=== PATIENT | female | born 1980 | race Caucasian/White ===

== ENCOUNTER 2020-01-25 00:22 | Outpatient (CLI) | payer OTHER, SELFPAY ==
[2020-01-25 18:58] LABS: SARS-CoV-2 RNA PCR Negative
== END 2020-01-25 00:23 | disposition home or self-care (01) ==
LOC: ANHCOVIDDT 00:22
PROVIDERS: PCP Nurse Practitioner Family; Visit Provider Internal Medicine Gastroenterology
DX: Z01.812 Encounter for preprocedural laboratory examination (principal); Z20.828 Contact with and (suspected) exposure to other viral communicable diseases
CPT/HCPCS: 87635; C9803; U0003

== ENCOUNTER 2020-01-27 01:46 | Day surgery (SDC) | payer OTHER, SELFPAY ==
[2020-01-19 13:10] VITALS: BMI 43.5
[2020-01-27 06:54] VITALS: BP 154/108; PULSE 121; RESP 20; TEMP 36.3; O2SAT 98; BMI 43.1
--- NOTE | 2020-01-27 07:04 | P.HP_ITS ---
History of Present Illness History of Present Illness Consent: Risks, benefits, and alternatives have been discussed and questions answered. Patient agrees to proceed with procedure. Chief complaint: blood in stool Narrative: Rupali aMhan is a 39 year old W female referred for colonoscopy for evaluation of rectal bleeding. Patient states approximately a month ago she began having hematochezia bright red blood on the toilet paper and toilet bowl. However the past 2 weeks she has been having loose stools mixed with blood and a few clots. No significant abdominal pain. No fever chills or sweats. No recent travel. No antibiotics. No prior history of bleeding. No family history of inflammatory bowel disease. She thinks her grandmother may have had colon polyps removed. Source can tell patient has not had any blood work nor any stool cultures. [facility] Surgical History Surgical History (Updated 01/27/20 @ 07:07 by Wilder Gil MD) History of carpal tunnel surgery of right wrist Status post Status post tonsillectomy and adenoidectomy Social History Social History Gender identity (if verbalized by the patient): Female Meds Home Medications and Allergies Home Medications Medication Instructions Recorded Confirmed Type ergocalciferol (vitamin D2) 50,000 unit PO WEEKLY 01/19/20 01/19/20 History [Vitamin D2] ibuprofen 200 mg PO Q6H PRN 01/19/20 01/19/20 History Allergies Allergy/AdvReac Type Severity Reaction Status Date / Time minocycline Allergy Intermediate HIVES Verified 01/27/20 06:54 Penicillins Allergy Intermediate HIVES Verified 01/27/20 06:54 Sulfa (Sulfonamide Allergy Intermediate HIVES Verified 01/27/20 06:54 Antibiotics) nystatin Allergy Mild LOCAL RASH Verified 01/27/20 06:54 ketorolac Allergy Unknown unknown Verified 01/27/20 06:54 Vital Signs Vital Signs - 24 hr 01/27/20 06:54 Temperature 36.3 C L Pulse Rate 121 H Respiratory Rate 20 Blood Pressure 154/108 H Pulse Oximetry 98 Exam Const: Orientation/consciousness: patient oriented x3 Resp: Auscultation: clear to auscultation bilaterally Cardio: Rate: regular rate Rhythm: regular rhythm Heart sounds: no murmurs GI: GI Palp: Yes Soft to palpation, No Tenderness to palpation present (GI), Yes No hepatosplenomegaly present and No Palpable mass present Auscultation: normal bowel sounds Neuro: General: patient oriented x3 and no focal motor deficits Extrem: General: no pedal edema Assessment and Plan Additional Plan colonoscopy for evaluation of rectal bleeding
[2020-01-27] MEDS: LACTATED RINGERS 1,000 ML 150 ML IV CONT (07:09)
--- NOTE | 2020-01-27 07:27 | WPDANESEPPF ---
Anes - Initial Pre Proc Eval Procedure: Operation Date: 01/27/20 08:00 Proposed Procedures p Colonoscopy - Wilder Gil MD Date/Time: 01/27/20 07:27 Surgeon: Wilder Gil MD Pre Op Diagnosis: blood in stool Patient Data Age: 39 Gender: F Height: 5 ft 8 in Weight: 128.7 kg Last Vital Signs Temp 97.3 F L 01/27/20 06:54 Pulse 121 H 01/27/20 06:54 Resp 20 01/27/20 06:54 BP 154/108 H 01/27/20 06:54 Pulse Ox 98 01/27/20 06:54 Allergies Allergy/AdvReac Type Severity Reaction Status Date / Time minocycline Allergy Intermediate HIVES Verified 01/27/20 06:54 Penicillins Allergy Intermediate HIVES Verified 01/27/20 06:54 Sulfa (Sulfonamide Allergy Intermediate HIVES Verified 01/27/20 06:54 Antibiotics) nystatin Allergy Mild LOCAL RASH Verified 01/27/20 06:54 ketorolac Allergy Unknown unknown Verified 01/27/20 06:54 Home Medications Medication Instructions Recorded Confirmed Type ergocalciferol (vitamin D2) 50,000 unit PO WEEKLY 01/19/20 01/19/20 History [Vitamin D2] ibuprofen 200 mg PO Q6H PRN 01/19/20 01/19/20 History Patient hx anesthesia problems: none Family hx anesthesia problems: none PMFSH Past Medical History Medical History (Updated 01/27/20 @ 07:27 by Baldomero Pittman MD) Asthma Morbid obesity Surgical History Surgical History (Updated 01/27/20 @ 07:07 by Wilder Gil MD) History of carpal tunnel surgery of right wrist Status post Status post tonsillectomy and adenoidectomy Social History Social History Gender identity (if verbalized by the patient): Female Anes - Eval Final PreProcedure Day of Procedure 01/27/20 07:27 Patient weight: morbidly obese Heart: regular rate and rhythm Lungs: clear to auscultation Airway: Mallampati scale class II Neurological: alert and oriented Last oral intake: >/= 8 hours ASA classification: III Emergent: no Anesthetic plan: proceed Anesthesia type and monitoring: general GIVS and standard monitoring Informed Consent: The patient's anesthetic plan and its attendant risks and benefits were discussed with the patient/family/POA. Questions were solicited and answers provided to the satisfaction of the patient/family/POA.
[2020-01-27 08:13] VITALS: BP 101/51; PULSE 75; RESP 16; O2SAT 100
[2020-01-27 08:23] VITALS: BP 129/65; PULSE 83; RESP 14; O2SAT 100
[2020-01-27 08:33] VITALS: BP 124/85; PULSE 78; RESP 16; O2SAT 100
== END 2020-01-27 08:56 | disposition home or self-care (01) ==
PROVIDERS: PCP Nurse Practitioner Family; Visit Provider Internal Medicine Gastroenterology
PROC: 0DJD8ZZ Inspection of Lower Intestinal Tract, Via Natural or Artificial Opening Endoscopic (ICD-10-PCS; CPT 45378; principal; 2020-01-27 08:00)
DX: K52.9 Noninfective gastroenteritis and colitis, unspecified (principal); K62.89 Other specified diseases of anus and rectum; J45.909 Unspecified asthma, uncomplicated; E66.01 Morbid (severe) obesity due to excess calories; Z68.41 Body mass index [BMI] 40.0-44.9, adult
CPT/HCPCS: 45380; 88305; J2704; J7120

== ENCOUNTER → 2020-09-22 15:31 | Outpatient (CLI) | payer OTHER, SELFPAY ==
--- NOTE | ~2020-09-22 | MM_ITS ---
EXAMINATION: MM screening [facility] BI w jennifer HISTORY: Screening mammogram TECHNIQUE: Craniocaudal and mediolateral oblique 3-D tomosynthesis images were obtained and synthetic 2-D images were generated. CAD analysis was submitted and interpreted. COMPARISON: None, baseline BREAST PARENCHYMAL COMPOSITION: The breasts are almost entirely fatty. FINDINGS: RIGHT BREAST: An asymmetry is present in the middle/posterior third of the slightly outer breast 9 cm from the nipple on the craniocaudal view. LEFT BREAST: An asymmetry is present in the anterior third of the inner breast 4 cm from the nipple o n the craniocaudal view. IMPRESSION: 1. Bilateral breast asymmetries. 2. Additional mammographic views and possible breast ultrasound are recommended to evaluate for malig trista and establish a baseline given that this is the first mammographic examination. BI-RADS Category 0: Incomplete: Needs additional imaging evaluation. Reviewed, dictated and finalized at location A. MBLY LOADER IMPRESSION: 1. Bilateral breast asymmetries. 2. Additional mammographic views and possible breast ultrasound are recommended to evaluate for malignancy and establish a baseline given that this is the fir st mammographic examination. BI-RADS Category 0: Incomplete: Needs additional imaging evaluation.
== END ==
PROVIDERS: Visit Provider Nurse Practitioner Family
DX: Z12.31 Encounter for screening mammogram for malignant neoplasm of breast (principal); R92.8 Other abnormal and inconclusive findings on diagnostic imaging of breast
CPT/HCPCS: 77063; 77067

== ENCOUNTER → 2020-10-16 14:29 | Outpatient (CLI) | payer OTHER, SELFPAY ==
--- NOTE | ~2020-10-16 | MMUS_ITS ---
EXAMINATION: MM diagnostic mammo BI, US breast BI limited HISTORY: Follow-up breast asymmetries TECHNIQUE: Additional 3-D tomosynthesis images of the breasts were performed and synthetic 2-D images were generated. CAD analysis was submitted and interpreted. High resolution bilateral limited breast ultrasound was performed. COMPARISON: 09/22/2020 BREAST PARENCHYMAL COMPOSITION: Breast composed of scattered areas of fibroglandular density FINDINGS: MAMMOGRAPHIC FINDINGS: There are no suspicious masses, calcifications or architectural distortion in either breast to sugges t malignancy. Bilateral breast asymmetries are less dense with spot compression views. ULTRASOUND: Limited bilateral breast ultrasound: Normal heterogeneous echotexture without focal solid or cystic m ass in the lateral half of the right breast and medial half of the left breast. No sonographic eviden ce for malignancy. IMPRESSION: 1. No evidence for malignancy in either breast. 2. Routine yearly screening mammogram and regular clinical breast examination are recommended. BI-RADS Category 2: Benign finding(s). Reviewed, dictated and finalized at location A. ORATION SILVERSMITH IMPRESSION: 1. No evidence for malignancy in either breast. 2. Routine yearly screening mammogram and regular clinical breast examination a re recommended. BI-RADS Category 2: Benign finding(s).
== END ==
PROVIDERS: PCP Nurse Practitioner Family; Visit Provider Nurse Practitioner Family
DX: R92.8 Other abnormal and inconclusive findings on diagnostic imaging of breast (principal)
CPT/HCPCS: 76642; 77066

== ENCOUNTER → 2022-06-26 12:00 | Outpatient (CLI) | payer OTHER, SELFPAY ==
--- NOTE | ~2022-06-26 | XR_ITS ---
EXAMINATION: XR lumbar spine 2-3V DATE: 06/26/2022 12:17 INDICATION: Low back pain TECHNIQUE: AP and lateral views of the lumbar spine were obtained. COMPARISON: None. FINDINGS: There is no fracture, dislocation, or subluxation. The vertebral body heights are normal. T here is mild loss of intervertebral disc space height at L5-S1. Small degenerative osteophytes projec t from the anterior endplates of multiple vertebral bodies. IMPRESSION: 1. Mild lumbar spondylosis without acute findings. Reviewed, dictated and finalized at location B. E DRIVER
== END ==
PROVIDERS: PCP Nurse Practitioner Family; Visit Provider Chiropractor
DX: M47.896 Other spondylosis, lumbar region (principal)
CPT/HCPCS: 72100

== ENCOUNTER 2022-07-09 14:28 | Outpatient (CLI) | payer OTHER, SELFPAY ==
--- NOTE | 2022-07-09 | ECG_ITS ---
Measurements Intervals [place] Rate: 80 P: 59 MS: 163 QRS: 59 QRSD: 80 T: 16 QT: 360 QTc: 417 Interpretive Statements SINUS RHYTHM NORMAL ECG COMPARED TO ECG 04/29/2019 12:10:40 NO SIGNIFICANT CHANGES Electronically Signed On 07-10-2022 8:50:47 BANKING ATTORNEY by Ron Lou D.O.
--- NOTE | 2022-07-09 | ECHO_ITS ---
Patient Info Name: Rupali Mahan Age: 42 years : 1980 Gender: Female Ht: 68 in Wt: 323 lbs BSA: 2.73 m2 HR: 97 bpm BP: 118 / 88 mmHg Heart Rhythm: Sinus Rhythm Technical Quality: Fair Exam Date: 07/09/2022 3:05 PM Exam Location: [facility] Pulmonary Patient Status: Outpatient Admit Date: 07/09/2022 Staff Ordering Physician: NeshaJenn Transformation Architect: Luz Barillas RDCS Attending Provider: Nesha, Jenn BOUDREAUX Referring Physician: Nesha OMALLEY; Exam Type: CA echo doppler color flow Study Info Indications - swelling of eve lower limbs Complete two-dimensional, color flow and Doppler transthoracic echocardiogram is performed. Summary 1. Complete two-dimensional, color flow and Doppler transthoracic echocardiogram is performed. 2. Left ventricular systolic function is normal, estimated at >70%. 3. The left ventricular diastolic function is normal. 4. Right ventricular systolic function is normal. 5. No significant valvular disease. Left Ventricle Left ventricular chamber dimension is normal. Left ventricular systolic function is normal, estimated at >70%. There is no increased left ventricular wall thickness. The left ventricular diastolic function is normal. Right Ventricle Right ventricular chamber dimension is normal. Right ventricular systolic function is normal. Left Atria Left atrial chamber dimension is normal. Right Atria Right atrial chamber dimension is normal. Aortic Valve The aortic valve is not well visualized. There is no aortic valve stenosis. There is no aortic valve regurgitation. Pulmonic Valve The pulmonic valve is not well visualized. Mitral Valve The mitral valve has normal leaflets. There is no mitral valve stenosis. There is no mitral valve regurgitation. Tricuspid Valve The tricuspid valve leaflets are normal. There is no significant tricuspid valve stenosis. There is trace tricuspid valve regurgitation. Pericardium/Pleural There is no pericardial effusion. Aorta The aortic root size at the sinus of Valsalva is normal. Left Ventricular Outflow Tract Name Value Normal LVOT 2D LVOT Diameter 2.0 cm LVOT Doppler LVOT Peak Gradient 4 mmHg LVOT Mean Gradient 2 mmHg LVOT VTI 19 cm LVOT VTI/AV VTI Ratio 0.7 LVOT Stroke Volume 59 ml LVOT CO 11.8 l/min LVOT CI 4.3 l/min/m2 Pulmonic Valve Name Value Normal RVOT Doppler RVOT Peak Gradient 5 mmHg PV Doppler PV Peak Gradient 8 mmHg Mitral Valve
== END 2022-07-09 14:29 | disposition home or self-care (01) ==
LOC: ANHCARD 14:29
PROVIDERS: PCP Nurse Practitioner Family; Visit Provider Nurse Practitioner Family
DX: M79.89 Other specified soft tissue disorders (principal)
CPT/HCPCS: 93005; 93306

== ENCOUNTER → 2022-09-19 14:17 | Outpatient (CLI) | payer OTHER, SELFPAY ==
--- NOTE | ~2022-09-19 | MM_ITS ---
EXAMINATION: MM screening [facility] BI w jennifer HISTORY: Screening TECHNIQUE: Craniocaudal and mediolateral oblique 3-D tomosynthesis images were obtained and synthetic 2-D images were generated. CAD analysis was submitted and interpreted. COMPARISON: Comparison to multiple prior studies sequentially, with oldest reviewed study dated 12/2020. BREAST PARENCHYMAL COMPOSITION: There are scattered areas of fibroglandular density. FINDINGS: There is no evidence of suspicious mass, calcification, or architectural distortion to sugg est malignancy in either breast. There has been no suspicious interval change. IMPRESSION: 1. No mammographic evidence of malignancy. 2. Recommend routine screening mammography in one year. BI-RADS Category 1: Negative Reviewed, dictated and finalized at location A. ENT WEIGHER
== END ==
PROVIDERS: PCP Nurse Practitioner Family; Visit Provider Nurse Practitioner Family
DX: Z12.31 Encounter for screening mammogram for malignant neoplasm of breast (principal)
CPT/HCPCS: 77063; 77067

== ENCOUNTER → 2022-11-08 14:18 | Outpatient (CLI) | payer OTHER, SELFPAY ==
--- NOTE | ~2022-11-08 | XR_ITS ---
EXAMINATION: XR chest 2V 11/08/2022 14:33 INDICATION: Chest pain and shortness of breath PROCEDURE: 2 view chest COMPARISON: No prior studies for comparison. FINDINGS: The lungs are clear. The cardiomediastinal silhouette is within normal limits. There are no pleural effusions. There is no pneumothorax suspected. IMPRESSION: 1: NO ACUTE CARDIOPULMONARY DISEASE. Reviewed, dictated and finalized at location A.
== END ==
PROVIDERS: PCP Nurse Practitioner Family; Visit Provider Nurse Practitioner
DX: R07.89 Other chest pain (principal)
CPT/HCPCS: 71046

== ENCOUNTER 2023-10-29 15:29 | Outpatient (CLI) | payer BC, SELFPAY ==
--- NOTE | ~2023-10-29 | MM_ITS ---
EXAMINATION: MM screening [facility] BI w jennifer HISTORY: Screening mammogram TECHNIQUE: Craniocaudal and mediolateral oblique 3-D tomosynthesis images were obtained and synthetic 2-D images were generated. CAD analysis was submitted and interpreted. COMPARISON: September 19, 2022 bilateral screening mammogram October 16, 2020 diagnostic bilateral mammogram and Limited bilateral breast ultrasound examination September 22, 2020 bilateral screening mammogram BREAST PARENCHYMAL COMPOSITION: There are scattered areas of fibroglandular density. FINDINGS: There is no evidence of suspicious mass, calcification, or architectural distortion to sugg est malignancy in either breast. There has been no suspicious interval change. IMPRESSION: 1. No mammographic evidence of malignancy. 2. Recommend routine screening mammography in one year. BI-RADS Category 1: Negative Reviewed, dictated and finalized at location A.
== END 2023-10-29 15:30 ==
LOC: MICIMG 15:30
PROVIDERS: PCP Nurse Practitioner Family; Visit Provider Nurse Practitioner Family
DX: Z12.31 Encounter for screening mammogram for malignant neoplasm of breast (principal)
CPT/HCPCS: 77063; 77067

== ENCOUNTER 2024-06-09 13:20 | Outpatient (CLI) | payer BC, SELFPAY ==
--- NOTE | ~2024-06-09 | US_ITS ---
EXAMINATION: US pelvic complete w TV INDICATION: Abnormal uterine bleeding Comparison:No prior studies for comparison. TECHNIQUE: Multiple transabdominal and endovaginal sonographic images of the pelvis performed. FINDINGS: The uterus measures 8.2 x 5.9 x 4.8 cm. The endometrial complex is not well delineated. The re is a complex 4.8 cm uterine mass, consistent with a fibroid. The right ovary is not visualized. Left ovary is unremarkable measuring 1.7 x 1.7 x 1.6 cm. There is no free fluid in the pelvis. There are no abnormal masses seen on either side. IMPRESSION: 1. Complex 4.8 cm uterine fibroid. Endometrial complex not visualized. Reviewed, dictated and finalized at location B.
== END 2024-06-09 13:21 | disposition home or self-care (01) ==
PROVIDERS: PCP Obstetrics & Gynecology; Visit Provider Obstetrics & Gynecology
DX: N93.9 Abnormal uterine and vaginal bleeding, unspecified (principal); D25.9 Leiomyoma of uterus, unspecified
CPT/HCPCS: 76830; 76856

== ENCOUNTER 2025-01-12 13:48 | Outpatient (CLI) | payer BC, SELFPAY ==
--- NOTE | ~2025-01-12 | MM_ITS ---
EXAMINATION: MM screening [facility] BI w jennifer HISTORY: Screening TECHNIQUE: Craniocaudal and mediolateral oblique 3-D tomosynthesis images were obtained and synthetic 2-D images were generated. CAD analysis was submitted and interpreted. COMPARISON: Comparison to multiple prior studies sequentially, with oldest reviewed study dated 09/2022. BREAST PARENCHYMAL COMPOSITION: Not Dense: The breasts are almost entirely fatty. FINDINGS: There is no evidence of suspicious mass, calcification, or architectural distortion to sugg est malignancy in either breast. There has been no suspicious interval change. IMPRESSION: 1. No mammographic evidence of malignancy. 2. Recommend routine screening mammography in one year. BI-RADS Category 1: Negative Reviewed, dictated and finalized at location A.
== END 2025-01-12 13:49 | disposition home or self-care (01) ==
LOC: MICIMG 13:48
PROVIDERS: PCP Obstetrics & Gynecology; Visit Provider Nurse Practitioner Family
DX: Z12.31 Encounter for screening mammogram for malignant neoplasm of breast (principal)
CPT/HCPCS: 77063; 77067